=== PATIENT | male | born 1950 | race Hispanic/Latino ===

== ENCOUNTER 2017-08-27 07:57 | Day surgery (SDC) | payer MEDICARE ==
[2017-08-17 08:45] VITALS: BMI 31.8
[2017-08-27] MEDS ORDERED: Propofol 10 mg/ml Inj (20 ML) ONE (11:58)
[2017-08-27] MEDS ORDERED: Etomidate 20 mg/10ml Inj IV ONE (12:08)
[2017-08-27] MEDS ORDERED: Sodium Chloride 0.9% 1,000 ML IV SCH (12:45)
[2017-08-27 12:48] VITALS: RESP 18; TEMP 97.9
[2017-08-27 13:12] VITALS: PULSE 70; O2SAT 98
[2017-08-27 13:24] VITALS: BP 121/73
== END 2017-08-27 14:00 | disposition home or self-care (01) ==
LOC: ENDO 07:57
PROVIDERS: ATTEND Internal Medicine Gastroenterology
DX: Z12.11 Encounter for screening for malignant neoplasm of colon (principal); K62.1 Rectal polyp; K57.30 Diverticulosis of large intestine without perforation or abscess without bleeding; K64.8 Other hemorrhoids; I25.10 Atherosclerotic heart disease of native coronary artery without angina pectoris; E78.5 Hyperlipidemia, unspecified; I10 Essential (primary) hypertension
CPT/HCPCS: 45380; 88305; J2001; J2704; J7030; J7040

== ENCOUNTER 2018-08-16 09:36 | Outpatient (CLI) | payer MEDICARE | END 2018-08-16 09:37 | disposition home or self-care (01) | LOC: PAT 09:36 ==